=== PATIENT | male | born 1990 | race Caucasian/White ===

== ENCOUNTER 2018-10-11 11:59 | Emergency (ER) | payer OTHER ==
[2018-10-11 12:26] VITALS: PULSE 78; RESP 18; TEMP 98.4
[2018-10-11] MEDS ORDERED: TDAP Vaccine 0.5 mL Syr IM ONE (13:01)
[2018-10-11 15:42] VITALS: BP 141/72; O2SAT 99
--- NOTE | 2018-10-11 23:38 | ED PDOC ---
Arrival/HPI - General Chief Complaint: Eye Problem Time Seen by Provider: 10/11/18 12:01 Historian: Patient - History of Present Illness Narrative History of Present Illness (Text): 27 y/o male with no significant PMH presents to the ED c/o right eye discomfort x 2 hours. Pt was at work when he had a sudden onset of right eye discomfort with increased tearing. 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 Attempted to flush eyes at eyewash station without relief. Does not wear contacts. Denies fever, chills, photophobia, vision changes, headache, dizziness, nausea, vomiting, sinus congestion, or any other associated symptoms. Past Medical History - Provider Review Nursing Documentation Reviewed: Yes - Infectious Disease Hx of Infectious Diseases: None - Pulmonary Hx Respiratory Disorders: Yes Hx Asthma: Yes - Psychiatric Hx Substance Use: No - Anesthesia Hx Anesthesia: No Hx Anesthesia Reactions: No Hx Malignant Hyperthermia: No Family/Social History - Physician Review Nursing Documentation Reviewed: Yes Family/Social History: No Known Family HX Smoking Status: Never Smoked Hx Alcohol Use: Yes Hx Substance Use: No Allergies/Home Meds Allergies/Adverse Reactions: Allergies No Known Allergies Allergy (Verified 09/22/16 00:00) Review of Systems - Review of Systems Constitutional: Normal. absent: Fevers Eyes: Eye Pain. absent: Vision Changes, Photophobia ENT: Normal. absent: Sore Throat, Sinus Congestion Respiratory: Normal. absent: SOB, Cough Cardiovascular: Normal. absent: Chest Pain, Palpitations, Syncope Gastrointestinal: Normal. absent: Abdominal Pain, Nausea, Vomiting Musculoskeletal: Normal. absent: Back Pain, Neck Pain Skin: Normal. absent: Rash, Cellulitis Neurological: Normal. absent: Headache, Dizziness Physical Exam Vital Signs Temp Pulse Resp BP Pulse Ox 10/11/18 15:15 78 18 141/72 99 10/11/18 12:19 98.4 F 78 18 145/78 98 Temperature: Afebrile Blood Pressure: Normal Pulse: Regular Respiratory Rate: Normal Appearance: Positive for: Well-Appearing, Non-Toxic, Comfortable Pain Distress: None Mental Status: Positive for: Alert and Oriented X 3 Medical Decision Making ED Course and Treatment: Initial Plan: * Eye flush * Fluoroscein Stain * TDaP * Visual Acuity Right eye flushed with 60ml NS Fluoroscein reveals small foreign body at 6 o'clock. FB removed with Q tip. Small corneal abrasion remains without foreign body. No FB on eyelid eversion. Visual acuity normal Pt reports mild improvement in discomfort Advised optho followup today or tomorrow, and PMD followup. Diagnostic testing results and plan of care discussed with patient. Strict instructions given regarding prescription use, importance of followup, and signs /symptoms to return to ER including vision changes, fever, chills, worsening pain, or any other new/worsening symptoms. Pt verbalized understanding of discussion. Patient is A&Ox3, ambulating with steady gait, with vital signs stable for discharge. - Medication Orders Current Medication Orders: Discontinued Medications Tetanus/Reduced Diphtheria/Acell Pertussis (Boostrix Vaccine Inj) 0.5 ml IM .ONCE ONE Stop: 10/11/18 13:02 Last Admin: 10/11/18 13:27 Dose: 0.5 ml Immunization Registry Document 10/11/18 13:27 MAYLIN (Rec: 10/11/18 13:28 MAYLIN [id number]) [facility]-Date provided 10/11/18 Disposition/Present on Arrival - Present on Arrival History of DVT/PE: No History of Uncontrolled Diabetes: No Urinary Catheter: No History of Decub. Ulcer: No History Surgical Site Infection Following: None - Disposition Diagnosis: Corneal abrasion Disposition: HOME/ ROUTINE Condition: IMPROVED Discharge Instructions (ExitCare): Corneal Abrasion (DC) Additional Instructions: 2 drops in right eye 4 times daily (every 6 hours) for 1 week Followup with eye doctor today Followup with primary doctor within 2 days Return to ER with any new/worsening symptoms Prescriptions: Sulfacetamide Sodium [Bleph 10% Eye Drops] 15 drop OD Q6 #1 bottle Referrals: Sky Dawkins MD [Staff Provider] - Follow up with primary Forms: [employer] (Khmer), WORK NOTE
== END 2018-10-11 15:47 | disposition home or self-care (01) ==
LOC: ED 11:59
DX: S05.01XA Injury of conjunctiva and corneal abrasion without foreign body, right eye, initial encounter (principal); X58.XXXA Exposure to other specified factors, initial encounter; Z23 Encounter for immunization